=== PATIENT | male | born 1980 | race Caucasian/White ===

== ENCOUNTER 2020-01-17 11:30 | Emergency (ER) | payer SELFPAY ==
[~2020-01-17] VITALS: Ht 152.4 cm; Wt 54.4 kg
[2020-01-17] MEDS ORDERED: ONDANSETRON HCL/PF 4 MG/2 ML VIAL ONE (11:41)
--- NOTE | 2020-01-17 11:45 | NUR ---
BALDEMAR RA76 Homeless/Found on street ALOC/NOT responding Gave Narcan NO effect. PT PRESENTS TO ER VOMITING AND RESPONSIVE TO PAINFUL STIMULI ONLY. DISHEVELED APPEARANCE. NO ACUTE DISTRESS NOTED. RR EVEN AND UNLABORED ON RA. PLACED IN GOWN AND ON MONITOR. SEEN BY DR ALCALA. AWAITING ER ORDERS.
[2020-01-17 11:58] LABS: BASOPHILS # (AUTO) 0.1 /CMM (0.0-0.2); BASOPHILS % (AUTO) 0.9 % (0.0-2.0); EOSINOPHILS % (AUTO) 3.5 % (0.0-6.0); HEMATOCRIT 35 % (39-51); LYMPHOCYTES # (AUTO) 2.4 /CMM (0.8-4.8); LYMPHOCYTES % (AUTO) 20.6 % (20.0-44.0); MEAN CORPUSCULAR HGB CONC 31 g/dl (31.0-36.0); MEAN CORPUSCULAR VOLUME 73 fL (80-96); MONOCYTES # (AUTO) 0.4 /CMM (0.1-1.30); MONOCYTES % (AUTO) 3.5 % (2.0-12.0); NEUTROPHILS # (AUTO) 8.2 /CMM (1.8-8.9); NEUTROPHILS % (AUTO) 71.5 % (43.0-81.0); PLATELET COUNT (AUTO) 588 /CMM (150-450); RED BLOOD CELL COUNT(AUTO) 4.81 MIL/uL (4.5-6.0); WHITE BLOOD COUNT (AUTO) 11.5 K/uL (4.3-11.0)
[2020-01-17 12:00] LABS: APPEARANCE,URINE Clear (CLEAR); BILIRUBIN,URINE Negative (NEGATIVE); BLOOD, URINE Negative Ery/uL (NEGATIVE); COLOR,URINE Yellow (YELLOW); KETONES,URINE Negative (NEGATIVE); LEUKOCYTE ESTERASE ,URINE Negative (NEGATIVE); NITRITE, URINE Negative (NEGATIVE); PH,URINE 5.5 (5.0-8.0); PROTEIN,URINE Trace mg/dl (NEGATIVE); UGLUCOSE Negative (NEGATIVE); UROBILINOGEN,URINE 0.2 EU/dL (0.2)
[2020-01-17] MEDS ORDERED: Thiamine 100 MG in IV D5W 50 ML IV SCH (12:00)
[2020-01-17] MEDS ORDERED: ONDANSETRON HCL/PF 4 MG/2 ML VIAL IV ONE (12:00)
[2020-01-17] MEDS ORDERED: IV NS 0.9% 1,000 ML BAG IV ONE (12:00)
[2020-01-17 12:20] LABS: ALANINE AMINOTRANSFERASE 41 U/L (12-78); ALBUMIN 3.5 g/dL (3.4-5.0); ALCOHOL, BLOOD 212 mg/dL (0-0); ALKALINE PHOSPHATASE 104 U/L (46-116); ASPARTATE AMINOTRANSFERASE 41 U/L (15-37); BILIRUBIN,DIRECT 0.1 mg/dL (0.0-0.2); BILIRUBIN,TOTAL 0.3 mg/dL (0.2-1.0); CALCIUM, SERUM 8.3 mg/dL (8.5-10.1); CARBON DIOXIDE 21 mmol/L (21-32); CHLORIDE 101 mmol/L (98-107); CREATININE 1.2 mg/dL (0.6-1.3); GLUCOSE 128 mg/dL (74-106); POTASSIUM 3.1 mmol/L (3.5-5.1); SODIUM SERUM 138 mmol/L (136-145); TOTAL PROTEIN, SERUM 6.7 g/dL (6.4-8.2); UREA NITROGEN, BLOOD 17 mg/dL (7-18)
[2020-01-17 12:20] LABS: BACTERIA,URINE None seen /HPF (None Seen); RBC,URINE 0-2 /HPF (0-2); SQUAMOUS EPITHELIAL CELL,UR Few /HPF (None Seen); WBC,URINE 0-2 /HPF (0-3)
[2020-01-17 12:25] LABS: ACETAMINOPHEN 0 ug/ml (10-30)
[2020-01-17 12:26] LABS: SERUM AMMONIA < 10 umol/L (11-32)
--- NOTE | 2020-01-17 13:30 | NUR ---
PT ASLEEP IN ROOM. STILL RESPONDING TO PAIN ONLY. VSS. WILL CONT TO MONITOR.
[2020-01-17] MEDS ORDERED: POTASSIUM CL. PREMIX PERIPHER. 100 ML ONE (14:30)
[2020-01-17] MEDS: POTASSIUM CL. PREMIX PERIPHER. 50 ML IV SCH ×2 (14:40→15:57)
--- NOTE | 2020-01-17 14:40 | NUR ---
PT AWAKE, RESPONDS TO VERBAL STIMULI. FIRST NAME ASAD. STILL DROWSY. IV KCL INFUSING. PT TRAY WELL. WILL CONT TO MONITOR.
--- NOTE | 2020-01-17 16:47 | NUR ---
PT WALK TO RESTROOM WITH STEADY GAIT
--- NOTE | 2020-01-17 17:07 | NUR ---
IV removed. Catheter intact and site benign. Pressure and 4x4 applied to site. No bleeding noted.Patient discharged to home in stable condition. Written and verbal after care instructions given. Patient verbalizes understanding of instruction. PROVIDED FOOD AND TAP CARD.
[2020-01-17 17:11] VITALS: BP 139/88
== END 2020-01-17 17:51 | disposition home or self-care (01) ==
LOC: EDBD 11:34 → ER 11:34
DX: R40.4 Transient alteration of awareness (principal); F10.129 Alcohol abuse with intoxication, unspecified; F15.129 Other stimulant abuse with intoxication, unspecified; D72.829 Elevated white blood cell count, unspecified; D50.9 Iron deficiency anemia, unspecified; D47.3 Essential (hemorrhagic) thrombocythemia; E87.6 Hypokalemia; E87.2 Acidosis; R41.0 Disorientation, unspecified; Y90.7 Blood alcohol level of 200-239 mg/100 ml; Z59.0 Homelessness; Z79.899 Other long term (current) drug therapy
CPT/HCPCS: 36415; 70450; 71045; 80048; 80076; 80305; 80307; 80329; 81001; 82140; 82962; 84443; 84484; 85025; 85730; 96365; 96366; 96367; 96375; 99285; G0480; J2405; J3411; J3480; J7030; J7060; 81000-TC